=== PATIENT | male | born 1940 | race Two or more races ===

== ENCOUNTER 2022-10-23 21:30 | Inpatient (IN) | payer OTHER ==
[2022-10-22 22:56] VITALS: BP 153/78; PULSE 66; RESP 17; TEMP 97.4; O2SAT 98
[~2022-10-23] VITALS: Ht 190.5 cm; Wt 82.4 kg
[2022-10-23] MEDS ORDERED: GEMF-66 PO (22:55)
[2022-10-23] MEDS ORDERED: LISI10TA34 PO (22:55)
[2022-10-23 22:56] VITALS: BP 153/78; PULSE 66; RESP 17; TEMP 97.4; O2SAT 98
[2022-10-23] MEDS ORDERED: ACETAMINOPHEN 325 MG TAB PO PRN (23:15)
[2022-10-23] MEDS ORDERED: NITROGLYCERIN 0.4 MG SL TAB SL PRN (23:15)
[2022-10-23] MEDS ORDERED: ONDANSETRON HCL 4 MG/2 ML VIAL IV PRN (23:15)
[2022-10-23] MEDS ORDERED: MORPHINE SULFATE INJ 2 MG/ml SYRG IV PRN ×2 (23:15)
[2022-10-23] MEDS ORDERED: METOPROLOL TARTRATE 1MG/1ML-5ML VIAL IV PRN (23:15)
[2022-10-23] MEDS ORDERED: HYDROcodone-ACET 5/325MG TAB PO PRN (23:15)
[2022-10-23 23:56] VITALS: BP 153/78; PULSE 66; RESP 17; TEMP 97.4; O2SAT 98
[2022-10-24] VITALS (7 sets, daily range): BP systolic 138–174; BP diastolic 66–84; PULSE 62–91; RESP 15–19; TEMP 97.5–98.3; O2SAT 46–98
[2022-10-24 00:23] LABS: Hematocrit 31.8 % (41.0-53.0); Hemoglobin 10.7 g/dL (13.5-17.5)
[2022-10-24] MEDS: SODIUM CHLORIDE 0.9% 1,000 ML IV SCH ×3 (00:48→17:49)
[2022-10-24 03:59] LABS: Urine Bacteria NONE SEEN /hpf (None Seen); Urine Blood 3+ /uL (Negative); Urine Specific Gravity 1.016 (1.001-1.035); Urine WBC 666 /hpf (0 - 3); Urine WBC Clumps PRESENT /hpf (None Seen)
[2022-10-24 08:47] LABS: Basophils # (auto) 0 10 ^3/uL (0-0.2); Basophils % (auto) 0.3 % (0.0-2.0); Eosinophils # (auto) 0 10 ^3/uL (0-0.8); Eosinophils % (auto) 0.4 % (0.0-7.0); Hematocrit 32.8 % (41.0-53.0); Hemoglobin 10.9 g/dL (13.5-17.5); Lymphocytes # (auto) 0.8 10 ^3/uL (0.4-5.4); Lymphocytes % (auto) 6.8 % (10.0-50.0); Mean Corpuscular Hemoglobin 29.4 pg (28.0-32.0); Mean Corpuscular Hgb Conc. 33.4 g/dL (32.0-36.0); Mean Corpuscular Volume 88.1 fL (80.0-100.0); Monocytes # (auto) 0.6 10 ^3/uL (0-1.3); Monocytes % (auto) 4.7 % (0.0-12.0); Neutrophils # (auto) 10.4 10 ^3/uL (1.6-8.6); Neutrophils % (auto) 87.8 % (37.0-80.0); Red Blood Cells 3.72 10^6/uL (4.5-5.90); Red Cell Distribution Width 13.9 % (11.8-14.3); White Blood Cell 11.9 10^3/uL (4.4-10.8)
[2022-10-24 08:55] LABS: Magnesium 2.2 mg/dL (1.6-2.6); Potassium 4.4 mmol/L (3.5-5.1)
[2022-10-24 08:58] LABS: INR 1.12 (0.9-1.15)
[2022-10-24 09:01] LABS: Albumin 3.3 g/dL (3.4-5.0); BUN/Creatinine Ratio 17.5 (10.0-20.0); Bilirubin, Total 0.5 mg/dL (0.2-1.0); Calcium 9.5 mg/dL (8.5-10.1); Total Protein 7.5 g/dL (6.4-8.2)
[2022-10-24] MEDS: PANTOPRAZOLE 40 MG/10 ML VIAL INJ IV SCH (09:06)
[2022-10-24] MEDS: cefTRIAXone 1GM/50ML D5W 50 ML IV SCH (09:06)
[2022-10-24] MEDS ORDERED: HEPARIN SODIUM (PORCINE) 5000 UNITS/ML 1ML VIAL SC SCH (10:00)
[2022-10-24] MEDS ORDERED: hydrALAZINE HCL 20 MG/ML VL IV PRN (10:45)
[2022-10-24] MEDS ORDERED: CARVEDILOL 3.125 MG TAB PO SCH (11:00)
[2022-10-24 11:44] LABS: Hematocrit 29.4 % (41.0-53.0); Hemoglobin 9.9 g/dL (13.5-17.5)
[2022-10-24] MEDS: AMIODARONE HCL 200 MG TAB PO SCH (13:32)
[2022-10-24] MEDS ORDERED: TAMSULOSIN HYDROCHLORIDE 0.4 MG CAP PO SCH (18:00)
[2022-10-24 18:34] LABS: Hematocrit 29.9 % (41.0-53.0)
[2022-10-24] MEDS ORDERED: METOPROLOL TARTRATE 25 MG TAB PO SCH (22:00)
[2022-10-25] VITALS (7 sets, daily range): BP systolic 115–163; BP diastolic 68–85; PULSE 65–95; RESP 16–20; TEMP 97.4–98.4; O2SAT 97–100
[2022-10-25 06:24] LABS: Basophils # (auto) 0 10 ^3/uL (0-0.2); Basophils % (auto) 0.5 % (0.0-2.0); Eosinophils # (auto) 0.2 10 ^3/uL (0-0.8); Eosinophils % (auto) 1.7 % (0.0-7.0); Hemoglobin 10.6 g/dL (13.5-17.5); Lymphocytes # (auto) 1.2 10 ^3/uL (0.4-5.4); Mean Corpuscular Hemoglobin 29.8 pg (28.0-32.0); Mean Corpuscular Hgb Conc. 34.2 g/dL (32.0-36.0); Mean Corpuscular Volume 87.2 fL (80.0-100.0); Monocytes # (auto) 0.5 10 ^3/uL (0-1.3); Monocytes % (auto) 4.9 % (0.0-12.0); Neutrophils # (auto) 8.4 10 ^3/uL (1.6-8.6); Neutrophils % (auto) 80.9 % (37.0-80.0); Nucleated Red Blood Cells % 0.1 %; Red Blood Cells 3.55 10^6/uL (4.5-5.90); Red Cell Distribution Width 13.7 % (11.8-14.3); White Blood Cell 10.4 10^3/uL (4.4-10.8)
[2022-10-25 06:32] LABS: BUN/Creatinine Ratio 17.2 (10.0-20.0); Calcium 9.5 mg/dL (8.5-10.1); Potassium 4.3 mmol/L (3.5-5.1)
[2022-10-25] MEDS: SODIUM CHLORIDE 0.9% 1,000 ML IV SCH ×2 (06:38→23:30)
[2022-10-25] MEDS: PANTOPRAZOLE 40 MG/10 ML VIAL INJ IV SCH (09:16)
[2022-10-25] MEDS: AMIODARONE HCL 200 MG TAB PO SCH (09:16)
[2022-10-25] MEDS: cefTRIAXone 1GM/50ML D5W 50 ML IV SCH (09:16)
[2022-10-25] MEDS: hydrALAZINE HCL 25 MG TAB PO SCH ×2 (19:00→22:04)
[2022-10-25] MEDS: CARVEDILOL 12.5 MG TAB PO SCH ×2 (19:01→22:03)
[2022-10-26] VITALS (7 sets, daily range): BP systolic 105–143; BP diastolic 52–81; PULSE 64–120; RESP 16–18; TEMP 97.7–98.1; O2SAT 97–100
[2022-10-26] MEDS: hydrALAZINE HCL 25 MG TAB PO SCH ×3 (05:41→21:37)
[2022-10-26 05:58] LABS: Basophils # (auto) 0 10 ^3/uL (0-0.2); Basophils % (auto) 0.4 % (0.0-2.0); Eosinophils # (auto) 0.2 10 ^3/uL (0-0.8); Eosinophils % (auto) 1.7 % (0.0-7.0); Hematocrit 26.1 % (41.0-53.0); Lymphocytes # (auto) 0.8 10 ^3/uL (0.4-5.4); Lymphocytes % (auto) 9.2 % (10.0-50.0); Mean Corpuscular Hemoglobin 30.1 pg (28.0-32.0); Mean Corpuscular Hgb Conc. 34.3 g/dL (32.0-36.0); Mean Corpuscular Volume 87.8 fL (80.0-100.0); Monocytes # (auto) 0.5 10 ^3/uL (0-1.3); Monocytes % (auto) 5.3 % (0.0-12.0); Neutrophils # (auto) 7.7 10 ^3/uL (1.6-8.6); Neutrophils % (auto) 83.4 % (37.0-80.0); Red Blood Cells 2.97 10^6/uL (4.5-5.90); White Blood Cell 9.2 10^3/uL (4.4-10.8)
[2022-10-26] MEDS: cefTRIAXone 1GM/50ML D5W 50 ML IV SCH (08:41)
[2022-10-26] MEDS: CARVEDILOL 12.5 MG TAB PO SCH ×2 (08:42→21:37)
[2022-10-26] MEDS: AMIODARONE HCL 200 MG TAB PO SCH (08:42)
[2022-10-26] MEDS: PANTOPRAZOLE 40 MG/10 ML VIAL INJ IV SCH (08:42)
[2022-10-26] MEDS: SODIUM CHLORIDE 0.9% 1,000 ML IV SCH (19:36)
[2022-10-27] VITALS (8 sets, daily range): BP systolic 124–153; BP diastolic 69–75; PULSE 64–73; RESP 16–68; TEMP 96.4–98.6; O2SAT 95–100
[2022-10-27] MEDS: hydrALAZINE HCL 25 MG TAB PO SCH ×3 (05:31→21:50)
[2022-10-27 07:45] LABS: Basophils # (auto) 0.1 10 ^3/uL (0-0.2); Basophils % (auto) 0.8 % (0.0-2.0); Eosinophils # (auto) 0.2 10 ^3/uL (0-0.8); Hematocrit 27.3 % (41.0-53.0); Hemoglobin 9.2 g/dL (13.5-17.5); Lymphocytes # (auto) 0.8 10 ^3/uL (0.4-5.4); Mean Corpuscular Hemoglobin 29.7 pg (28.0-32.0); Mean Corpuscular Hgb Conc. 33.6 g/dL (32.0-36.0); Mean Corpuscular Volume 88.4 fL (80.0-100.0); Monocytes # (auto) 0.4 10 ^3/uL (0-1.3); Neutrophils # (auto) 6.1 10 ^3/uL (1.6-8.6); Neutrophils % (auto) 80.2 % (37.0-80.0); Nucleated Red Blood Cells % 0.1 %; Red Blood Cells 3.09 10^6/uL (4.5-5.90); Red Cell Distribution Width 13.7 % (11.8-14.3); White Blood Cell 7.6 10^3/uL (4.4-10.8)
[2022-10-27] MEDS: SODIUM CHLORIDE 0.9% 1,000 ML IV SCH ×3 (08:38→14:12)
[2022-10-27] MEDS: cefTRIAXone 1GM/50ML D5W 50 ML IV SCH (09:26)
[2022-10-27] MEDS: CARVEDILOL 12.5 MG TAB PO SCH ×2 (09:28→21:50)
[2022-10-27] MEDS: AMIODARONE HCL 200 MG TAB PO SCH (09:28)
[2022-10-27] MEDS ORDERED: BUPIVACAINE 0.5% P/F INJ 10 ML VIAL ONE (11:23)
[2022-10-27] MEDS ORDERED: PROPOFOL 10 MG/ML 20 ML IV ONE (11:25)
[2022-10-27] MEDS ORDERED: ONDANSETRON HCL 4 MG/2 ML VIAL ONE (11:25)
[2022-10-27] MEDS ORDERED: SODIUM CHLORIDE LOCK 10 ML ONE (11:25)
[2022-10-27] MEDS ORDERED: fentaNYL CITRATE 100 MCG/2 ML VL ONE (11:25)
[2022-10-27] MEDS ORDERED: MIDAZOLAM HCL 2MG/2ML 2ml VIAL (1mg/ml) ONE (11:25)
[2022-10-27] MEDS ORDERED: MORPHINE SULFATE INJ 2 MG/ml SYRG IV PRN (14:00)
[2022-10-27] MEDS ORDERED: ONDANSETRON HCL 4 MG/2 ML VIAL IV PRN (14:00)
[2022-10-27] MEDS ORDERED: HYDROmorphone HCL 2 MG/ML VL/or syr IV PRN ×2 (14:00)
[2022-10-28] VITALS (8 sets, daily range): BP systolic 87–142; BP diastolic 54–77; PULSE 63–74; RESP 16–18; TEMP 96.8–98.3; O2SAT 91–100
[2022-10-28] MEDS: hydrALAZINE HCL 25 MG TAB PO SCH ×3 (05:42→22:11)
[2022-10-28] MEDS: SODIUM CHLORIDE 0.9% 1,000 ML IV SCH (05:48)
[2022-10-28 06:49] LABS: Basophils # (auto) 0 10 ^3/uL (0-0.2); Basophils % (auto) 0.5 % (0.0-2.0); Eosinophils # (auto) 0.2 10 ^3/uL (0-0.8); Eosinophils % (auto) 2.8 % (0.0-7.0); Hematocrit 25.7 % (41.0-53.0); Hemoglobin 8.8 g/dL (13.5-17.5); Lymphocytes # (auto) 0.7 10 ^3/uL (0.4-5.4); Lymphocytes % (auto) 8.5 % (10.0-50.0); Mean Corpuscular Hgb Conc. 34.2 g/dL (32.0-36.0); Mean Corpuscular Volume 87.7 fL (80.0-100.0); Monocytes # (auto) 0.5 10 ^3/uL (0-1.3); Monocytes % (auto) 6.7 % (0.0-12.0); Neutrophils # (auto) 6.5 10 ^3/uL (1.6-8.6); Neutrophils % (auto) 81.5 % (37.0-80.0); Red Blood Cells 2.93 10^6/uL (4.5-5.90); Red Cell Distribution Width 13.6 % (11.8-14.3); White Blood Cell 7.9 10^3/uL (4.4-10.8)
[2022-10-28 06:59] LABS: Calcium 8.7 mg/dL (8.5-10.1)
[2022-10-28 07:02] LABS: BUN/Creatinine Ratio 15.6 (10.0-20.0)
[2022-10-28] MEDS: cefTRIAXone 1GM/50ML D5W 50 ML IV SCH (10:51)
[2022-10-28] MEDS: CARVEDILOL 12.5 MG TAB PO SCH ×2 (10:52→22:11)
[2022-10-28] MEDS: AMIODARONE HCL 200 MG TAB PO SCH (10:52)
[2022-10-28] MEDS: FERROUS SULFATE 300 MG/5 ML ORAL LIQ PO SCH (18:26)
[2022-10-29 05:00] VITALS: BP 138/81; PULSE 70; RESP 18; TEMP 97.7; O2SAT 99
[2022-10-29] MEDS: hydrALAZINE HCL 25 MG TAB PO SCH (05:35)
[2022-10-29 06:20] LABS: Basophils # (auto) 0.1 10 ^3/uL (0-0.2); Basophils % (auto) 0.6 % (0.0-2.0); Eosinophils # (auto) 0.3 10 ^3/uL (0-0.8); Eosinophils % (auto) 3.4 % (0.0-7.0); Hematocrit 25.2 % (41.0-53.0); Hemoglobin 8.7 g/dL (13.5-17.5); Lymphocytes # (auto) 0.9 10 ^3/uL (0.4-5.4); Lymphocytes % (auto) 11.5 % (10.0-50.0); Mean Corpuscular Hemoglobin 30.3 pg (28.0-32.0); Mean Corpuscular Hgb Conc. 34.4 g/dL (32.0-36.0); Mean Corpuscular Volume 87.9 fL (80.0-100.0); Monocytes # (auto) 0.6 10 ^3/uL (0-1.3); Neutrophils # (auto) 6.1 10 ^3/uL (1.6-8.6); Neutrophils % (auto) 76.5 % (37.0-80.0); Nucleated Red Blood Cells % 0.2 %; Red Blood Cells 2.86 10^6/uL (4.5-5.90); Red Cell Distribution Width 13.6 % (11.8-14.3)
[2022-10-29 06:32] LABS: Calcium 8.3 mg/dL (8.5-10.1)
[2022-10-29 06:33] LABS: BUN/Creatinine Ratio 16.8 (10.0-20.0)
[2022-10-29 08:00] VITALS: PULSE 65; PULSE 72; RESP 18; O2SAT 97
[2022-10-29] MEDS: CARVEDILOL 12.5 MG TAB PO SCH (08:40)
[2022-10-29] MEDS: cefTRIAXone 1GM/50ML D5W 50 ML IV SCH (08:40)
[2022-10-29] MEDS: FERROUS SULFATE 300 MG/5 ML ORAL LIQ PO SCH (08:40)
[2022-10-29] MEDS: AMIODARONE HCL 200 MG TAB PO SCH (08:41)
[2022-10-29 08:52] VITALS: BP 132/69; PULSE 64; RESP 18; TEMP 97.8; O2SAT 99
[2022-10-29] MEDS ORDERED: CEPH250C PO (11:25)
[2022-10-29] MEDS ORDERED: APIX5TAB PO (11:32)
[2022-10-29] MEDS ORDERED: CAR125T OR (11:32)
[2022-10-29] MEDS ORDERED: AMIO200T33 PO (11:32)
[2022-10-29 12:51] VITALS: BP 130/66; PULSE 62; RESP 18; TEMP 97.8; O2SAT 99
[2022-10-29 13:00] VITALS: BP 98/45; PULSE 77; RESP 18; TEMP 98.1; O2SAT 98
== END 2022-10-29 13:00 | disposition home health service (06) | DRG 666 ==
LOC: TELE-CENTR 22:24
PROVIDERS: ADMIT Internal Medicine; ATTEND Internal Medicine
PROC: 0VT08ZZ Resection of Prostate, Via Natural or Artificial Opening Endoscopic (ICD-10-PCS; principal; 2022-10-27 12:23)
DX: N13.6 Pyonephrosis (principal); I13.0 Hypertensive heart and chronic kidney disease with heart failure and stage 1 through stage 4 chronic kidney disease, or unspecified chronic kidney disease; I48.92 Unspecified atrial flutter; N13.8 Other obstructive and reflux uropathy; I50.20 Unspecified systolic (congestive) heart failure; R33.8 Other retention of urine; R31.9 Hematuria, unspecified; N40.1 Benign prostatic hyperplasia with lower urinary tract symptoms; N17.9 Acute kidney failure, unspecified; F17.200 Nicotine dependence, unspecified, uncomplicated; E78.5 Hyperlipidemia, unspecified; I48.91 Unspecified atrial fibrillation; K59.00 Constipation, unspecified; N18.9 Chronic kidney disease, unspecified; Z68.21 Body mass index [BMI] 21.0-21.9, adult; Z92.3 Personal history of irradiation; Z85.828 Personal history of other malignant neoplasm of skin; Z82.0 Family history of epilepsy and other diseases of the nervous system; Z82.5 Family history of asthma and other chronic lower respiratory diseases; Z83.3 Family history of diabetes mellitus; Z90.79 Acquired absence of other genital organ(s)
CPT/HCPCS: 36415; 71045; 74176; 80048; 80053; 80061; 81001; 83036; 83735; 83880; 84154; 84443; 84484; 85014; 85018; 85025; 85610; 87040; 87081; 87086; 87088; 87186; 93005; 93306; 97163; C9113; G0378; J0696; J2250; J2405; J2704; J3490

== ENCOUNTER → 2022-12-11 | Outpatient (CLI) | payer OTHER ==
[~2022-12-11] VITALS: Ht 190.5 cm; Wt 81.6 kg
[~2022-12-11] MED LIST: ADENOSINE 69 MG in GIVE UN-DILUTED 0 ML IV ONE; AMIO200T33 PO; APIX5TAB PO; CAR125T OR; CEPH250C PO; GEMF-66 PO
== END | disposition home or self-care (01) ==
LOC: XYW 08:22
PROVIDERS: ATTEND Internal Medicine
DX: I48.92 Unspecified atrial flutter (principal); C44.320 Squamous cell carcinoma of skin of unspecified parts of face; R31.9 Hematuria, unspecified; Z68.21 Body mass index [BMI] 21.0-21.9, adult; Z90.79 Acquired absence of other genital organ(s)
CPT/HCPCS: 78452; 93017; A9500; J0153; 95819

== ENCOUNTER 2024-11-27 13:07 | Emergency (ER) | payer OTHER ==
[~2024-11-27] VITALS: Ht 190.5 cm; Wt 74.0 kg
[~2024-11-27 13:07] MED LIST changes: -ADENOSINE 69 MG in GIVE UN-DILUTED 0 ML IV ONE; -CAR125T OR; +CARV-216 OR
--- NOTE | 2024-11-27 14:14 | ED.PDOC ---
History of Present Illness(SKN HPI Comments 84 year old male presents to the ED with a chief complaint of wound check. Patient has PMHx skin cancer, has had 2 radiation treatments, last treatment was June 2024. For the past 2 weeks patient noticed wound on RT cheek was worsening, saw PCP, had a culture done, was not told the results. For the past few days, he noticed wound has worsened, has a foul odor, home health nurse recommended patient to come to ED. Denies fever, chills, nausea, vomiting, diarrhea, headache, chest pain, shortness of breath. No other symptoms or modifying factors present at this time. Chief Complaint: Wound Check Time Seen by MD: 14:00 History of Present Illness: Medications, Allergies Allergies: Coded Allergies: NO KNOWN ALLERGIES (Unverified , 10/24/22) Home Meds Active Scripts Carvedilol (COREG) 12.5 Mg Tab, 12.5 MG OR Q12HR, #60 TAB Prov:AMBAR FITZGERALD MD 10/29/22 Apixaban Base (ELIQUIS) 5 Mg Tab, 5 MG PO BIDPC, #60 TAB Prov:AMBAR FITZGERADL MD 10/29/22 Amiodarone Hcl (Amiodarone Hcl) 200 Mg Tab, 1 TAB PO DAILY, #30 TAB 5 Refills Prov:AMBAR FITZGERALD MD 10/29/22 Cephalexin (KEFLEX CAPSULE) 250 Mg Cp, 2 CAP PO TID for 3 Days, #18 CAP Prov:AMBAR FITZGERALD MD 10/29/22 Reported Medications Gemfibrozil (Gemfibrozil) 600 Mg Tab, 600 MG PO BID for 30 Days 10/23/22 Information Source: Patient, Spouse Mode of Arrival: Ambulatory Severity: Moderate Timing: Weeks Duration: Since onset Prehospital treatment: None Location: Face Associated Signs and Symptoms: Other (foul odor) Past Medical History PAST MEDICAL HISTORY: Cancer (skin), HTN Surgical History: Denies all surgeries Family History Family History: Reviewed,noncontributory to illness, No family hx of Cancer, No family hx of DM, No family hx of Heart wilber, No family hx of HTN, No family hx ofKidney wilber, No family hx of Liver wilber, No family hx of Lung wilber, No family hx of Stroke Social History Smoker: Non-Smoker Alcohol: Denies ETOH Use Drugs: Denies Drug Use Lives In: Home Constitutional: denies: chills, diaphoresis, fatigue, fever, malaise, sweats, w eakness, others EENTM: denies: blurred vision, double vision, ear bleeding, ear discharge, ear drainage, ear pain, ear ringing, eye pain, eye redness, hearing loss, mouth pain, mouth swelling, nasal discharge, nose bleeding, nose congestion, nose pain, photophobia, tearing, throat pain, throat swelling, voice changes, others Respiratory: denies: cough, hemoptysis, orthopnea, SOB at rest, shortness of breath, SOB with excertion, stridor, wheezing, others Cardiovascular: denies: chest pain, dizzy spells, diaphoresis, Dyspnea on exertion, edema, irregular heart beat, left arm pain, lightheadedness, palpitations, PND, syncope, others Gastrointestinal: denies: abdomen distended, abdominal pain, blood streaked bowels, constipated, diarrhea, dysphagia, difficulty swallowing, hematemesis, melena, nausea, poor appetite, poor fluid intake, rectal bleeding, rectal pain, vomiting, others Genitourinary: denies: burning, dysuria, flank pain, frequency, hematuria, incontinence, penile discharge, penile sore, pain, testicle pain, testicle swe lling, urgency, others Neurological: denies: dizziness, fainting, headache, left sided numbness, left sided weakness, numbness, paresthesia, pre-existing deficit, right sided numbness, right sided weakness, seizure, speech problems, tingling, tremors, weakness, others Musculoskeletal: denies: back pain, gout, joint pain, joint swelling, muscle pain, muscle stiffness, neck pain, others Integumetry: reports: wounds (RT cheek wound); denies: bruises, change in color, change in hair/nails, dryness, laceration, lesions, lumps, rash, others Allergic/Immunocompromised: denies: Difficulty Healing, Frequent Infections, Hives, Itching, others Endocrine: denies: excessive hunger, excessive sweating, excessive thirst, excessive urination, flushing, intolerance to cold, intolerance to heat, unexplained weight gain, unexplained weight loss, others Psychiatric: denies: anxiety, bipolar disorder, depression, hopeless, panic disorder, schizophrenia, sleepless, suicidal, others All Other Systems: Reviewed and Negative Physical Exam General Appearance: Normal HEENT: Normal ENT Inspection, Pharynx Normal, TMs Normal Neck: Full Range of Motion, Non-Tender, Normal, Normal Inspection Respiratory: Chest Non-Tender, Lungs Clear, No Accessory Muscle Use, No Respiratory Distress, Normal Breath Sounds Cardiovascular: No Edema, No JVD, No Murmur, No Gallop, Normal Peripheral Pulses, Regular Rate/Rhythm Breast Exam: Deferred Gastrointestinal: No Organomegaly, Non Tender, No Pulsatile Mass, Normal Bowel Sounds, Soft Genitalia: Deferred Pelvic: Deferred Rectal: Deferred Extremities: No calf tenderness, Normal capillary refill, Normal inspection, Normal range of motion, Non-tender, No pedal edema Musculoskeletal : Apperance: Normal Neurologic: Alert, shank carrier II-XII nml as Tested, No Motor Deficits, Normal Affect, Normal Mood, No Sensory Deficits Cerebellar Function: Normal Reflexes: Normal Skin: Other (Right face with approximately 10 cm chronic ulcerating wound with foul odor and small amount of surrounding erythema, positive warmth, no obvious discharge, no significant tenderness to palpation, no crepitus, no fluctuance) Lymphatic: No Adenopathy Was a procedure done? Was a procedure done?: No Differential Diagnosis (INTG) Differential Diagnosis: Cellulitis, Fracture, Hematoma, Laceration, Puncture Wound Differential Diagnosis: Abscess, Cellulitis, Erysipelas, Gangrene, Herpes Zoster/Simplex, Impetigo Abscess: Bacteremia, Gas Gangrene X-Ray, Labs, Meds, VS Vital Signs Date Time Temp Pulse Resp B/P (MAP) Pulse Ox O2 Delivery O2 Flow Rate FiO2 11/27/24 13:07 97.4 102 18 144/90 97 97.4 Lab Test 11/27/24 14:27 Range/Units White Blood Count 9.0 4.4-10.8 10^3/uL Red Blood Count 4.67 4.5-5.90 10^6/uL Hemoglobin 13.6 13.5-17.5 g/dL Hematocrit 39.6 L 41.0-53.0 % Mean Corpuscular Volume 84.8 80.0-100.0 fL Mean Corpuscular Hemoglobin 29.0 28.0-32.0 pg Mean Corpuscular Hemoglobin Concent 34.3 32.0-36.0 g/dL Red Cell Distribution Width 15.1 H 11.8-14.3 % Platelet Count 307 140-450 10^3/uL Mean Platelet Volume 7.9 6.9-10.8 fL Neutrophils (%) (Auto) 81.0 H 37.0-80.0 % Lymphocytes (%) (Auto) 10.4 10.0-50.0 % Monocytes (%) (Auto) 7.1 0.0-12.0 % Eosinophils (%) (Auto) 1.0 0.0-7.0 % Basophils (%) (Auto) 0.5 0.0-2.0 % Neutrophils # (Auto) 7.3 1.6-8.6 10 ^3/uL Lymphocytes # (Auto) 0.9 0.4-5.4 10 ^3/uL Monocytes # (Auto) 0.6 0-1.3 10 ^3/uL Eosinophils # (Auto) 0.1 0-0.8 10 ^3/uL Basophils # (Auto) 0 0-0.2 10 ^3/uL Nucleated Red Blood Cells 0.0 % Sodium Level 141 136-145 mmol/L Potassium Level 5.3 H 3.5-5.1 mmol/L Chloride Level 104 98-107 mmol/L Carbon Dioxide Level 27 20-31 mmol/L Anion Gap 10 5-15 Blood Urea Nitrogen 28 H 9-23 mg/dL Creatinine 1.51 H 0.700-1.30 mg/dL Glomerular Filtration Rate Calc 46 >90 mL/min BUN/Creatinine Ratio 18.5 10.0-20.0 Serum Glucose 95 74-106 mg/dL Lactic Acid Level 1.5 0.4-2.0 mmol/L Calcium Level 10.3 8.7-10.4 mg/dL Current Medications Medications (Trade) Dose Ordered Sig/Royce Route Start Time Stop Time Status Last Admin Sodium Chloride 1,000 ml @ 1,000 mls/hr Q1H ONCE IV 11/27/24 14:15 11/27/24 15:14 DC 11/27/24 14:15 Ceftriaxone Sodium 50 ml @ 100 mls/hr ONCE ONCE IV 11/27/24 14:15 11/27/24 14:44 DC 11/27/24 15:07 Vancomycin HCl 250 ml @ 250 mls/hr ONCE ONCE IV 11/27/24 16:30 11/27/24 17:29 DC 11/27/24 19:18 X-Ray, Labs, Meds, VS Comment 84-year-old male with history of basal cell carcinoma to the right side of his face here today after his home health nurse had concern for new infection at the site of the cancer. Vital signs stable, afebrile. Physical exam with evidence of chronic appearing wound with evidence of surrounding erythema and warmth and a foul odor consistent with infection. Labs overall reassuring without evidence of significant leukocytosis nor lactic acidosis. Blood cultures were obtained and vancomycin/ceftriaxone were ordered to cover for superficial skin infections/MRSA. Patient does not meet sepsis criteria. Plan was made to admit the patient to this hospital originally however admitting hospitalist was concerned that the patient would require debridement so recommended we transfer the patient instead as we do not have OMFS. Transfer was attempted for over 5 hours and was unsuccessful. Most recently I discussed the case with who stated that they could not get a hold of their OMFS surgeon so they could not accept the transfer and their ENT doctor did not have any OR time until . I provided the patient and his with constant updates throughout the duration of their stay in the ER and they were very appreciative of this. At 8:26 p.m., I updated done that [facility] refused the transfer and the patient and his stated that they would like to be discharged and they will go to themselves tomorrow. The patient did receive his IV antibiotics and overall his lab work is reassuring and does not appear to be consistent with sepsis. I provide the patient with strict return precautions for any fevers, or worsening of his symptoms or development of new symptoms and him and his expressed understanding of this and once again thanked me for the constant updates and the effort in getting them transferred today. Patient was discharged in stable condition and in no distress. Time of 1ST Reevaluation: 14:30 Reevaluation 1ST: Unchanged Time of 2ND Reevaluation: 20:27 Reevaluation 2ND: Improved Patient Education/Counseling: Diagnosis, Treatment Family Education/Counseling: Diagnosis, Treatment SEPSIS Sepsis Screen Date sepsis recognized/suspect: Nov 27, 2024 Time Sepsis recognized/suspect: 1307 Recent Procedure: No On Antibiotic Therapy: No Respiratory Rate >20: No Heart Rate >90: Yes Temp<36 C (96.8 F) or >38.3 C: No SBP <90 or MAP <65 mmHG: No New Acute Mental Status Change: No Is the patient on CPAP, BIPAP,: No Physician Orders Blood Culture (11/27/24 14:14) Vital Signs Date Time Temp Pulse Resp B/P (MAP) Pulse Ox O2 Delivery O2 Flow Rate FiO2 11/27/24 13:07 97.4 102 18 144/90 97 97.4 Laboratory Tests Test 11/27/24 14:27 Lactic Acid Level 1.5 mmol/L (0.4-2.0) White Blood Count 9.0 10^3/uL (4.4-10.8) Medications Medications Dose Ordered Sig/Royce Route Start Time Stop Time Status Last Admin Dose Admin Ceftriaxone Sodium 50 ml @ 100 mls/hr ONCE ONCE IV 11/27/24 14:15 11/27/24 14:44 DC 11/27/24 15:07 Sodium Chloride 1,000 ml @ 1,000 mls/hr Q1H ONCE IV 11/27/24 14:15 11/27/24 15:14 DC 11/27/24 14:15 Vancomycin HCl 250 ml @ 250 mls/hr ONCE ONCE IV 11/27/24 16:30 11/27/24 17:29 DC 11/27/24 19:18 Departure 1 Departure Time of Disposition: 20:27 Impression: Primary Impression: Basal cell carcinoma of face Additional Impression: Cellulitis Disposition: 01 HOME / SELF CARE / HOMELESS Condition: Stable Discharged With: Spouse Critical Care Note Critical Care Time?: Yes (30 min-critical care time only) Stability Stability form required: No Heart Score Heart Score: Heart Score Response (Comments) Value History N/A 0 EKG N/A 0 Age N/A 0 Risk Factors N/A 0 Troponin N/A 0 Total 0 I personally scribed for ERIKA BOURGEOIS MD ([email or web address]) on 11/27/24 at 14:14. Electronically submitted by Gisselle Palma ([email or web address]). ERIKA BOURGEOIS MD Nov 27, 2024 14:14
[2024-11-27] MEDS: SODIUM CHLORIDE 0.9% 1,000 ML IV ONE (14:15)
[2024-11-27] MEDS ORDERED: VANCOMYCIN 1GM/200ML PM 200 ML IV ONE (14:15)
[2024-11-27 14:49] LABS: Hematocrit 39.6 % (41.0-53.0); Hemoglobin 13.6 g/dL (13.5-17.5); Mean Corpuscular Hemoglobin 29.0 pg (28.0-32.0); Mean Corpuscular Volume 84.8 fL (80.0-100.0); Nucleated Red Blood Cells % 0.0 %
[2024-11-27] MEDS: cefTRIAXone 1GM/50ML D5W 50 ML IV ONE (15:07)
[2024-11-27 15:18] LABS: Chloride 104 mmol/L (98-107); Sodium 141 mmol/L (136-145)
[2024-11-27 15:19] LABS: Anion Gap 10 (5-15); Calcium 10.3 mg/dL (8.7-10.4); Carbon Dioxide 27 mmol/L (20-31)
[2024-11-27 15:24] LABS: BUN/Creatinine Ratio 18.5 (10.0-20.0); Glucose 95 mg/dL (74-106)
[2024-11-27 15:25] LABS: Blood Urea Nitrogen 28 mg/dL (9-23); Potassium 5.3 mmol/L (3.5-5.1)
[2024-11-27] MEDS: VANCOMYCIN 1GM/250ML KIT 250 ML IV ONE (19:18)
[2024-11-27] MEDS ORDERED: BACDST PO (20:29)
[2024-11-27] MEDS ORDERED: CEPH500C PO (20:29)
[2024-11-27 21:08] VITALS: BP 144/77; PULSE 84; RESP 20; TEMP 97.8; O2SAT 96
--- NOTE | 2024-11-29 12:58 | DVHINCON2 ---
Date Seen: Nov 27, 2024 Ref[address] Phys[address] ER physician Dr. Edwards. 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 History of Present Illness 84-year-old male with a known history of skin cancer of the right face likely basal cell cancer. status post radiation treatment in June 2024. Patient was complaining of worsening wound of the right cheek for last two weeks and saw his PCP and culture was done was told to go to the ER. Patient was noticed to have a wound which has gotten worse and has a foul odor. Patient denies any fevers chills. As we do not have any oral maxillofacial surgeon availability here patient will be transferred to higher level of care for oral maxillofacial surgeon to do the wound debridement and IV antibiotics. This was explained to the patient and patient's in detail they understand verbalized understanding and agreeable to plan. Past Medical History Basal cell cancer of the right face status post biopsy status post radiation Hypertension Paroxysmal AFib History of BPH status post TURP. Past Surgical History Right facial skin biopsy for squamous cell cancer Family History: Alzheimer's disease G8 MOTHER Diabetes mellitus G8 MOTHER FH: COPD (chronic obstructive pulmonary disease) G8 SISTER FH: cancer G8 MOTHER G8 SISTER Allergies: Coded Allergies: NO KNOWN ALLERGIES (Unverified , 10/24/22) Home Meds Active Scripts Cephalexin Monohydrate (Cephalexin) 500 Mg Cap, 500 MG PO Q6HR for 5 Days, #20 MG Prov:ERIKA BOURGEOIS MD 11/27/24 Sulfamethoxazole W/Trimethopri (Bactrim Ds Tablet) 1 Tab Tb, 1 TAB PO BID for 5 Days, #10 TAB Prov:ERIKA BOURGEOIS MD 11/27/24 Carvedilol (COREG) 12.5 Mg Tab, 12.5 MG OR Q12HR, #60 TAB Prov:AMBAR FITZGERALD MD 10/29/22 Apixaban Base (ELIQUIS) 5 Mg Tab, 5 MG PO BIDPC, #60 TAB Prov:AMBAR FITZGERALD MD 10/29/22 Amiodarone Hcl (Amiodarone Hcl) 200 Mg Tab, 1 TAB PO DAILY, #30 TAB 5 Refills Prov:AMBAR FITZGERALD MD 10/29/22 Cephalexin (KEFLEX CAPSULE) 250 Mg Cp, 2 CAP PO TID for 3 Days, #18 CAP Prov:AMBAR FITZGERALD MD 10/29/22 Reported Medications Gemfibrozil (Gemfibrozil) 600 Mg Tab, 600 MG PO BID for 30 Days 10/23/22 Review of Systems 12 review of system are negative besides mentioned above. Vital Signs Vital Signs Date Time Temp Pulse Resp B/P (MAP) Pulse Ox O2 Delivery O2 Flow Rate FiO2 11/27/24 21:08 97.8 84 20 144/77 (99) 96 97.8 11/27/24 21:08 Room Air Physical Exam HEENT pupils are reactive right facial skin cancer worsening wound with blackening of tissue Neck is supple CVS S1-S2 regular rate and rhythm Respiratory are clear GI positive bowel sound Extremity no edema CLERICAL SPECIALIST no motor deficit Labs/Diagnostic Data Labs Test 11/27/24 14:27 Range/Units White Blood Count 9.0 4.4-10.8 10^3/uL Red Blood Count 4.67 4.5-5.90 10^6/uL Hemoglobin 13.6 13.5-17.5 g/dL Hematocrit 39.6 L 41.0-53.0 % Mean Corpuscular Volume 84.8 80.0-100.0 fL Mean Corpuscular Hemoglobin 29.0 28.0-32.0 pg Mean Corpuscular Hemoglobin Concent 34.3 32.0-36.0 g/dL Red Cell Distribution Width 15.1 H 11.8-14.3 % Platelet Count 307 140-450 10^3/uL Mean Platelet Volume 7.9 6.9-10.8 fL Neutrophils (%) (Auto) 81.0 H 37.0-80.0 % Lymphocytes (%) (Auto) 10.4 10.0-50.0 % Monocytes (%) (Auto) 7.1 0.0-12.0 % Eosinophils (%) (Auto) 1.0 0.0-7.0 % Basophils (%) (Auto) 0.5 0.0-2.0 % Neutrophils # (Auto) 7.3 1.6-8.6 10 ^3/uL Lymphocytes # (Auto) 0.9 0.4-5.4 10 ^3/uL Monocytes # (Auto) 0.6 0-1.3 10 ^3/uL Eosinophils # (Auto) 0.1 0-0.8 10 ^3/uL Basophils # (Auto) 0 0-0.2 10 ^3/uL Nucleated Red Blood Cells 0.0 % Sodium Level 141 136-145 mmol/L Potassium Level 5.3 H 3.5-5.1 mmol/L Chloride Level 104 98-107 mmol/L Carbon Dioxide Level 27 20-31 mmol/L Anion Gap 10 5-15 Blood Urea Nitrogen 28 H 9-23 mg/dL Creatinine 1.51 H 0.700-1.30 mg/dL Glomerular Filtration Rate Calc 46 >90 mL/min BUN/Creatinine Ratio 18.5 10.0-20.0 Serum Glucose 95 74-106 mg/dL Lactic Acid Level 1.5 0.4-2.0 mmol/L Calcium Level 10.3 8.7-10.4 mg/dL Microbiology Date/Time Source Procedure Growth Status 11/27/24 14:27 Blood Blood Culture - Preliminary NO GROWTH AFTER 24 HOURS OF INCUBATION. Resulted Assessment 84-year-old male with a known history of basal cell cancer of the face status post biopsy status post radiation x2 last radiation therapy in June 2024 presented to the hospital with a worsening wound of the right face found to have 1. Worsening wound with a blackening of tissue on the right face with a known history of basal cell cancer, need oral maxillofacial surgeon intervention 2. Cellulitis of the right face 3. Hypertension 4. Paroxysmal AFib currently in normal sinus rhythm 5. BPH status post TURP -please give a dose of IV antibiotics here, patient needs higher level of care for oral maxillofacial surgeon availability for wound debridement and IV antibiotics. -plan of care discussed with the patient's patient's spouse in the low be they understand and verbalized the understanding and agreeable to plan , -patient needs higher level of care for oral maxillofacial surgeon intervention, this was communicated to ER physician Dr. Edwards. Problems(with codes): (1) Basal cell carcinoma of face Plan discussed with: Patient, Spouse Date of Service: Nov 27, 2024 Billing Provider: AMBAR FITZGERALD MD Common Visit Codes: NOT BILLABLE AMBAR FITZGERALD MD Nov 29, 2024 12:58
== END 2024-11-27 21:02 | disposition home or self-care (01) ==
LOC: ER 13:07
DX: C44.310 Basal cell carcinoma of skin of unspecified parts of face (principal); L03.211 Cellulitis of face; I10 Essential (primary) hypertension; Z90.79 Acquired absence of other genital organ(s)
CPT/HCPCS: 36415; 80048; 83605; 85025; 87040; 96361; 96365; 96367; 99284; J0696; J3373; J7030

== ENCOUNTER 2025-01-19 15:36 | Emergency (ER) | payer OTHER ==
[~2025-01-19] VITALS: Ht 190.5 cm; Wt 74.5 kg
[~2025-01-19 15:36] MED LIST changes: +BACDST PO; +CEPH500C PO
--- NOTE | 2025-01-19 18:25 | ED.PDOC ---
History of Present Illness HPI Comments This patient is a pleasant 84-year-old male who arrives the ED today for evaluation of a right-sided facial wound that has been ongoing for the past year. Patient initially had a basal cell carcinoma that was excised and subsequent to that event, patient has had massive tissue and bone deterioration to the point where at arrival today, the patient has the largest excoriated and degraded facial burn I have seen in my practice. Patient has lost all segments of zygomatic arch and has a exposed dentition as well as a small layer of tissue left on the inferior orbital region. Patient has been managed by wound care at home and was sent him with the facility today due to an appearance of a maggot. This patient needs multiple disciplinary assistance to address progressive and worsening wound. Vital signs were stable on arrival. Chief Complaint: Wound Check Time Seen by MD: 16:58 Reviewed Notes: Nurses Notes Allergies: Coded Allergies: NO KNOWN ALLERGIES (Unverified , 10/24/22) Home Meds Active Scripts Cephalexin Monohydrate (Cephalexin) 500 Mg Cap, 500 MG PO Q6HR for 5 Days, #20 MG Prov:ERIKA BOURGEOIS MD 11/27/24 Sulfamethoxazole W/Trimethopri (Bactrim Ds Tablet) 1 Tab Tb, 1 TAB PO BID for 5 Days, #10 TAB Prov:ERIKA BOURGEOIS MD 11/27/24 Carvedilol (COREG) 12.5 Mg Tab, 12.5 MG OR Q12HR, #60 TAB Prov:AMBAR FITZGERALD MD 10/29/22 Apixaban Base (ELIQUIS) 5 Mg Tab, 5 MG PO BIDPC, #60 TAB Prov:AMBAR FITZGERALD MD 10/29/22 Amiodarone Hcl (Amiodarone Hcl) 200 Mg Tab, 1 TAB PO DAILY, #30 TAB 5 Refills Prov:AMBAR FITZGERALD MD 10/29/22 Cephalexin (KEFLEX CAPSULE) 250 Mg Cp, 2 CAP PO TID for 3 Days, #18 CAP Prov:AMBAR FITZGERALD MD 10/29/22 Reported Medications Gemfibrozil (Gemfibrozil) 600 Mg Tab, 600 MG PO BID for 30 Days 10/23/22 Information Source: Patient, Spouse Mode of Arrival: Ambulatory Severity: Severe Timing: Months Duration: Since onset Prehospital treatment: Treatment Past Medical History PAST MEDICAL HISTORY: Cancer, HTN Past Medical History (Other): Basal cell carcinoma of the face Surgical History: Denies all surgeries Family History Family History: Reviewed,noncontributory to illness, No family hx of Cancer, No family hx of DM, No family hx of Heart wilber, No family hx of HTN, No family hx ofKidney wilber, No family hx of Liver wilber, No family hx of Lung wilber, No family hx of Stroke Social History Smoker: Non-Smoker Alcohol: Denies ETOH Use Drugs: Denies Drug Use Lives In: Home Constitutional: denies: chills, diaphoresis, fatigue, fever, malaise, sweats, weakness, others EENTM: reports: others (Significant right-sided facial wound); denies: blurred vision, double vision, ear bleeding, ear discharge, ear drainage, ear pain, ear ringing, eye pain, eye redness, hearing loss, mouth pain, mouth swelling, nasal discharge, nose bleeding, nose congestion, nose pain, photophobia, tearing, throat pain, throat swelling, voice changes Respiratory: denies: cough, hemoptysis, orthopnea, SOB at rest, shortness of breath, SOB with excertion, stridor, wheezing, others Cardiovascular: denies: chest pain, dizzy spells, diaphoresis, Dyspnea on exertion, edema, irregular heart beat, left arm pain, lightheadedness, palpitations, PND, syncope, others Gastrointestinal: denies: abdomen distended, abdominal pain, blood streaked bowels, constipated, diarrhea, dysphagia, difficulty swallowing, hematemesis, melena, nausea, poor appetite, poor fluid intake, rectal bleeding, rectal pain, vomiting, others Genitourinary: denies: burning, dysuria, flank pain, frequency, hematuria, incontinence, penile discharge, penile sore, pain, testicle pain, testicle swelling, urgency, others Neurological: denies: dizziness, fainting, headache, left sided numbness, left sided weakness, numbness, paresthesia, pre-existing deficit, right sided num bness, right sided weakness, seizure, speech problems, tingling, tremors, weakness, others Musculoskeletal: denies: back pain, gout, joint pain, joint swelling, muscle pain, muscle stiffness, neck pain, others Integumetry: denies: bruises, change in color, change in hair/nails, dryness, laceration, lesions, lumps, rash, wounds, others Allergic/Immunocompromised: denies: Difficulty Healing, Frequent Infections, Hives, Itching, others Hematologic/Lymphatic: denies: anemia, blood clots, easy bleeding, easy bruising, swollen glands, others Endocrine: denies: excessive hunger, excessive sweating, excessive thirst, excessive urination, flushing, intolerance to cold, intolerance to heat, unexplained weight gain, unexplained weight loss, others Psychiatric: denies: anxiety, bipolar disorder, depression, hopeless, panic disorder, schizophrenia, sleepless, suicidal, others Physical Exam General Appearance: Mild Distress (Moderate distress due to some pain concerns.), Normal HEENT: Head (Patient has the largest excoriated facial wound I have seen. Wound borders or proximally the size of a baseball. Excoriated tissue as well as complete zygomatic arch degradation, tissue degradation to the gingiva and thin layer tissue left at the bottom of the globe. Significant tissue necrosis noted throughout with angry erythematous and edematous border that is disfiguring throughout.), Pharynx Normal, TMs Normal Neck: Full Range of Motion, Non-Tender, Normal, Normal Inspection Respiratory: Chest Non-Tender, Lungs Clear, No Accessory Muscle Use, No Respiratory Distress, Normal Breath Sounds Cardiovascular: No Edema, No JVD, No Murmur, No Gallop, Normal Peripheral Pulses, Regular Rate/Rhythm Breast Exam: Deferred Gastrointestinal: No Organomegaly, Non Tender, No Pulsatile Mass, Normal Bowel Sounds, Soft Genitalia: Deferred Pelvic: Deferred Rectal: Deferred Extremities: Non-tender Neurologic: Alert Cerebellar Function: NOT DONE Reflexes: NOT DONE Skin: Wounds (See HEENT for description of facial wound) Lymphatic: No Adenopathy Was a procedure done? Was a procedure done?: No Differential Dx Considerations may include: Facial trauma with tissue degradation and necrosis X-Ray, Labs, Meds, VS Vital Signs Date Time Temp Pulse Resp B/P (MAP) Pulse Ox O2 Delivery O2 Flow Rate FiO2 01/19/25 15:39 97.6 114 18 157/104 96 97.6 Current Medications Medications (Trade) Dose Ordered Sig/Royce Route Start Time Stop Time Status Last Admin Acetaminophen/ Hydrocodone Bitart (Bozrah 5/325MG Tab) 1 tab ONCE ONCE PO 01/19/25 17:15 01/19/25 17:16 DC 01/19/25 18:52 X-Ray, Labs, Meds, VS Comment This patient is going to acquire a multiple discipline involvement to manage the horrific nature of his current condition. Patient is a Choice insurance patient therefore, I spoke with Dr. Fitzgerald, he confirmed and approved of higher level of care transfer. We will contact facilities that is have the facility to manage this patient properly and patient will be transferred today. Discussed the case with [facility] ER provider Dr. Jiang. Advised him of history of the patient as well as today's findings. He requested a consult with ENT for confirmation of their involvement. I discussed the patient presentation with Dr. Wells. Advised him of patient findings. He agreed to follow up with the patient in a consultation basis. Dr. Jiang and [facility] agreed to accept the patient is a transfer. We thank them for their assistance. Time of 1ST Reevaluation: 18:32 Reevaluation 1ST: Unchanged Consultation: PCP, ENT, Surgery, Other (Oncology) Patient Education/Counseling: Diagnosis, Treatment Family Education/Counseling: Diagnosis, Treatment SEPSIS Sepsis Screen Date sepsis recognized/suspect: Jan 19, 2025 Time Sepsis recognized/suspect: 4 Recent Procedure: No On Antibiotic Therapy: Yes Respiratory Rate >20: No Heart Rate >90: Yes Temp<36 C (96.8 F) or >38.3 C: No SBP <90 or MAP <65 mmHG: No New Acute Mental Status Change: No Is the patient on CPAP, BIPAP,: No Vital Signs Date Time Temp Pulse Resp B/P (MAP) Pulse Ox O2 Delivery O2 Flow Rate FiO2 01/19/25 15:39 97.6 114 18 157/104 96 97.6 Medications Medications Dose Ordered Sig/Royce Route Start Time Stop Time Status Last Admin Dose Admin Acetaminophen/ Hydrocodone Bitart 1 tab ONCE ONCE PO 01/19/25 17:15 01/19/25 17:16 DC 01/19/25 18:52 Departure 1 Departure Time of Disposition: 18:32 Impression: Primary Impression: Cellulitis Additional Impressions: Basal cell carcinoma of face Necrosis Disposition: 02 SHORT TERM HOSPITAL Condition: Stable Discharged With: Self, Spouse Critical Care Note Critical Care Time?: No Stability Stability form required: No Heart Score Heart Score: Heart Score Response (Comments) Value History N/A 0 EKG N/A 0 Age N/A 0 Risk Factors N/A 0 Troponin N/A 0 Total 0 NESHA RAVI PAC Jan 19, 2025 18:25
[2025-01-19] MEDS: HYDROcodone-ACET 5/325MG TAB PO ONE (18:52)
[2025-01-19 20:44] VITALS: BP 154/87; PULSE 62; RESP 18; TEMP 97.6; O2SAT 96
--- NOTE | 2025-01-20 14:52 | DVHINCON2 ---
Date Seen: Jan 19, 2025 Referring Physician ER nurse practitioner/physician Reason for Consultation Right facial wound necrosis with a known history of basal cell carcinoma of right face. History of Present Illness 84-year-old male with a known history of skin cancer of the right face likely basal cell cancer. status post radiation treatment in June 2024. Patient was seen by me in the past and was recommended to higher level of care in the past as well. Patient's right facial wound has necrosis as well as burn. As we do not have any maxillofacial surgeon here for plastic surgeon patient needs to be transferred to higher level of care for surgical and Plastic surgery intervention. As we do not have any oral maxillofacial surgeon availability here patient will be transferred to higher level of care for oral maxillofacial surgeon to do the wound debridement and IV antibiotics. This was explained to the patient and patient's in detail they understand verbalized understanding and agreeable to charlie Past Medical History Basal cell cancer of the right face status post radiation in the past Hypertension History of DVT BPH Past Surgical History Basal cell cancer of the right face status post surgery in the past. Family History: Alzheimer's disease G8 MOTHER Diabetes mellitus G8 MOTHER FH: COPD (chronic obstructive pulmonary disease) G8 SISTER FH: cancer G8 MOTHER G8 SISTER Allergies: Coded Allergies: NO KNOWN ALLERGIES (Unverified , 10/24/22) Home Meds Active Scripts Cephalexin Monohydrate (Cephalexin) 500 Mg Cap, 500 MG PO Q6HR for 5 Days, #20 MG Prov:ERIKA BOURGEOIS MD 11/27/24 Sulfamethoxazole W/Trimethopri (Bactrim Ds Tablet) 1 Tab Tb, 1 TAB PO BID for 5 Days, #10 TAB Prov:ERIKA BOURGEOIS MD 11/27/24 Carvedilol (COREG) 12.5 Mg Tab, 12.5 MG OR Q12HR, #60 TAB Prov:AMBAR FITZGERALD MD 10/29/22 Apixaban Base (ELIQUIS) 5 Mg Tab, 5 MG PO BIDPC, #60 TAB Prov:AMBAR FITZGERALD MD 10/29/22 Amiodarone Hcl (Amiodarone Hcl) 200 Mg Tab, 1 TAB PO DAILY, #30 TAB 5 Refills Prov:AMBAR FITZGERALD MD 10/29/22 Cephalexin (KEFLEX CAPSULE) 250 Mg Cp, 2 CAP PO TID for 3 Days, #18 CAP Prov:AMBAR FITZGERALD MD 10/29/22 Reported Medications Gemfibrozil (Gemfibrozil) 600 Mg Tab, 600 MG PO BID for 30 Days 10/23/22 Vital Signs Vital Signs Date Time Temp Pulse Resp B/P (MAP) Pulse Ox O2 Delivery O2 Flow Rate FiO2 01/19/25 20:50 Room Air* 0 21 01/19/25 20:44 97.6 62 18 154/87 (109) 96 97.6 Assessment 84-year-old male with a known history of skin cancer of the right face likely basal cell cancer who presented to the hospital with a worsening right facial face wound with a necrosis found to have 1. Right facial cell basal cell cancer with a worsening wound with a necrosis with a big hole 2. Basal cell cancer of the right face status post skin surgery as well as radiation in the past June of 2024 3. Hypertension 4. BPH 5. History of DVT -as we do not have any maxillofacial surgeon/plastic surgery available a here, patient can be transferred to higher level of care. -choice case liner has been notified. Plan discussed with: Other (ER nurse practitioner.) Date of Service: Jan 19, 2025 Billing Provider: AMBAR FITZGERALD MD Common Visit Codes: NOT BILLABLE AMBAR FITZGERALD MD Jan 20, 2025 14:52
== END 2025-01-19 21:03 | disposition short-term general hospital (02) ==
LOC: ER 15:36
DX: L03.90 Cellulitis, unspecified (principal); C44.310 Basal cell carcinoma of skin of unspecified parts of face; I96 Gangrene, not elsewhere classified; I10 Essential (primary) hypertension; Z79.899 Other long term (current) drug therapy; Z92.3 Personal history of irradiation; Z86.718 Personal history of other venous thrombosis and embolism; Z85.828 Personal history of other malignant neoplasm of skin

== ENCOUNTER 2025-03-29 12:14 | Emergency (ER) | payer OTHER ==
[~2025-03-29] VITALS: Ht 190.5 cm; Wt 69.9 kg
--- NOTE | 2025-03-29 13:28 | ED.PDOC ---
History of Present Illness(SKN HPI Comments 84 y/o M, with PMHx of basal cell carcinoma and HTN presents to the ED for CC of wound check. Patient reports, to have worsening right-sided facial basal cell carcinoma that is now causing him to be unable to eat. Per patient's , patient was Dx with basal cell carcinoma [id number] ago and has underwent x3 rounds of radiation and x1 round of chemotherapy; endorses following up regularly with his oncologist. Patient further comments on, new onset symptoms of bilateral leg swelling in relation. Patient denies nausea, vomiting, fever, or chills. No other symptoms or modifying factors are present at this time. Chief Complaint: Wound Check Time Seen by MD: 13:00 History of Present Illness: Nurses Notes, Medications, Allergies Allergies: Coded Allergies: NO KNOWN ALLERGIES (Unverified , 10/24/22) Home Meds Active Scripts Cephalexin Monohydrate (Cephalexin) 500 Mg Cap, 500 MG PO Q6HR for 5 Days, #20 MG Prov:ERIKA BOURGEOIS MD 11/27/24 Sulfamethoxazole W/Trimethopri (Bactrim Ds Tablet) 1 Tab Tb, 1 TAB PO BID for 5 Days, #10 TAB Prov:ERIKA BOURGEOIS MD 11/27/24 Carvedilol (COREG) 12.5 Mg Tab, 12.5 MG OR Q12HR, #60 TAB Prov:AMBAR FITZGERALD MD 10/29/22 Apixaban Base (ELIQUIS) 5 Mg Tab, 5 MG PO BIDPC, #60 TAB Prov:AMBAR FITZGERALD MD 10/29/22 Amiodarone Hcl (Amiodarone Hcl) 200 Mg Tab, 1 TAB PO DAILY, #30 TAB 5 Refills Prov:AMBAR FITZGERALD MD 10/29/22 Cephalexin (KEFLEX CAPSULE) 250 Mg Cp, 2 CAP PO TID for 3 Days, #18 CAP Prov:AMBAR FITZGERALD MD 10/29/22 Reported Medications Gemfibrozil (Gemfibrozil) 600 Mg Tab, 600 MG PO BID for 30 Days 10/23/22 Information Source: Patient Mode of Arrival: Ambulatory Severity: Moderate Timing: Months Duration: Since onset Prehospital treatment: None Location: Face (right sided) Associated Signs and Symptoms: None Past Medical History PAST MEDICAL HISTORY: Cancer, HTN Surgical History: Denies all surgeries Family History Family History: Reviewed,noncontributory to illness, No family hx of Cancer, No family hx of DM, No family hx of Heart wilber, No family hx of HTN, No family hx ofKidney wilber, No family hx of Liver wilber, No family hx of Lung wilber, No family hx of Stroke Social History Smoker: Non-Smoker Alcohol: Denies ETOH Use Drugs: Denies Drug Use Lives In: Home Constitutional: denies: chills, diaphoresis, fatigue, fever, malaise, sweats, weakness, others EENTM: denies: blurred vision, double vision, ear bleeding, ear discharge, ear drainage, ear pain, ear ringing, eye pain, eye redness, hearing loss, mouth pain, mouth swelling, nasal discharge, nose bleeding, nose congestion, nose pain, photophobia, tearing, throat pain, throat swelling, voice changes, others Respiratory: denies: cough, hemoptysis, orthopnea, SOB at rest, shortness of breath, SOB with excertion, stridor, wheezing, others Cardiovascular: denies: chest pain, dizzy spells, diaphoresis, Dyspnea on exertion, edema, irregular heart beat, left arm pain, lightheadedness, palpitations, PND, syncope, others Gastrointestinal: reports: poor appetite; denies: abdomen distended, abdominal pain, blood streaked bowels, constipated, diarrhea, dysphagia, difficulty swallowing, hematemesis, melena, nausea, poor fluid intake, rectal bleeding, rectal pain, vomiting, others Genitourinary: denies: burning, dysuria, flank pain, frequency, hematuria, incontinence, penile discharge, penile sore, pain, testicle pain, testicle swelling, urgency, others Neurological: denies: dizziness, fainting, headache, left sided numbness, left sided weakness, numbness, paresthesia, pre-existing deficit, right sided numbness, right sided weakness, seizure, speech problems, tingling, tremors, weakness, others Musculoskeletal: reports: others (bilateral leg swelling); denies: back pain, gout, joint pain, joint swelling, muscle pain, muscle stiffness, neck pain Integumetry: denies: bruises, change in color, change in hair/nails, dryness, laceration, lesions, lumps, rash, wounds, others Allergic/Immunocompromised: denies: Difficulty Healing, Frequent Infections, Hives, Itching, others Hematologic/Lymphatic: denies: anemia, blood clots, easy bleeding, easy bruising, swollen glands, others Endocrine: denies: excessive hunger, excessive sweating, excessive thirst, excessive urination, flushing, intolerance to cold, intolerance to heat, unexplained weight gain, unexplained weight loss, others Psychiatric: denies: anxiety, bipolar disorder, depression, hopeless, panic disorder, schizophrenia, sleepless, suicidal, others All Other Systems: Reviewed and Negative Physical Exam General Appearance: Severe Distress HEENT: Pharynx Normal, TMs Normal, Other (Significant deformity of the right side of the face with a erosive areas around the maxillary as well as zygoma and orbital region with some drainage) Neck: Full Range of Motion, Non-Tender, Normal, Normal Inspection Respiratory: Chest Non-Tender, Lungs Clear, No Accessory Muscle Use, No Respiratory Distress, Normal Breath Sounds Cardiovascular: No Edema, No JVD, No Murmur, No Gallop, Normal Peripheral Pulses, Regular Rate/Rhythm Breast Exam: Deferred Gastrointestinal: No Organomegaly, Non Tender, No Pulsatile Mass, Normal Bowel Sounds, Soft Genitalia: Deferred Pelvic: Deferred Rectal: Deferred Extremities: No calf tenderness, Normal capillary refill, Normal inspection, Normal range of motion, Non-tender, No pedal edema Musculoskeletal : Apperance: Normal Neurologic: Alert, moving consultant II-XII nml as Tested, No Motor Deficits, Normal Affect, Normal Mood, No Sensory Deficits Cerebellar Function: Normal Reflexes: Normal Skin: Dry, Normal Color, Warm Lymphatic: No Adenopathy Was a procedure done? Was a procedure done?: No Differential Diagnosis (INTG) Differential Diagnosis: Other (basal cell carcinoma) X-Ray, Labs, Meds, VS Vital Signs Date Time Temp Pulse Resp B/P (MAP) Pulse Ox O2 Delivery O2 Flow Rate FiO2 03/29/25 20:55 60 13 155/71 03/29/25 20:25 64 15 155/71 03/29/25 19:30 97.8 77 17 139/68 (91) 98 97.8 03/29/25 19:30 Room Air* 0 21 03/29/25 18:00 54 18 163/77 (105) 99 12/18/25 17:00 64 03/29/25 16:58 71 16 99 Room Air* 0 21 03/29/25 16:45 97.4 71 16 162/85 (110) 99 97.4 03/29/25 13:59 98.4 85 17 145/92 (109) 96 98.4 03/29/25 12:15 98.3 110 18 150/96 97 98.3 Lab Test 03/29/25 15:10 03/29/25 13:26 Range/Units Urine Color Yellow Yellow Urine Clarity Clear Clear Urine pH 5.5 5.0-9.0 Urine Specific Chauvin 1.021 1.001-1.035 Urine Protein Negative Negative Urine Ketones Negative Negative Urine Blood Negative Negative /uL Urine Nitrite Negative Negative Urine Bilirubin Negative Negative Urine Urobilinogen Normal Negative mg/dL Urine Leukocyte Esterase Negative Negative /uL Urine RBC 1 0 - 3 /hpf Urine Microscopic WBC 2 0-3 /HPF Urine Squamous Epithelial Cells Few <5 /hpf Urine Bacteria None seen None Seen /hpf Urine Hyaline Casts Few 0 - 2 /lpf Urine Mucus Few None Seen Urine Glucose Normal Normal mg/dL White Blood Count 10.7 4.4-10.8 10^3/uL Red Blood Count 4.54 4.5-5.90 10^6/uL Hemoglobin 12.5 L 13.5-17.5 g/dL Hematocrit 38.2 L 41.0-53.0 % Mean Corpuscular Volume 84.0 80.0-100.0 fL Mean Corpuscular Hemoglobin 27.4 L 28.0-32.0 pg Mean Corpuscular Hemoglobin Concent 32.7 32.0-36.0 g/dL Red Cell Distribution Width 14.6 H 11.8-14.3 % Platelet Count 315 140-450 10^3/uL Mean Platelet Volume 7.8 6.9-10.8 fL Neutrophils (%) (Auto) 87.7 H 37.0-80.0 % Lymphocytes (%) (Auto) 6.4 L 10.0-50.0 % Monocytes (%) (Auto) 5.3 0.0-12.0 % Eosinophils (%) (Auto) 0.4 0.0-7.0 % Basophils (%) (Auto) 0.2 0.0-2.0 % Neutrophils # (Auto) 9.4 H 1.6-8.6 10 ^3/uL Lymphocytes # (Auto) 0.7 0.4-5.4 10 ^3/uL Monocytes # (Auto) 0.6 0-1.3 10 ^3/uL Eosinophils # (Auto) 0 0-0.8 10 ^3/uL Basophils # (Auto) 0 0-0.2 10 ^3/uL Nucleated Red Blood Cells 0.1 % Sodium Level 143 136-145 mmol/L Potassium Level 4.2 3.5-5.1 mmol/L Chloride Level 105 98-107 mmol/L Carbon Dioxide Level 28 20-31 mmol/L Anion Gap 10 5-15 Blood Urea Nitrogen 20 9-23 mg/dL Creatinine 1.29 0.700-1.30 mg/dL Glomerular Filtration Rate Calc 55 >90 mL/min BUN/Creatinine Ratio 15.5 10.0-20.0 Serum Glucose 95 74-106 mg/dL Lactic Acid Level 1.1 0.4-2.0 mmol/L Calcium Level 10.3 8.7-10.4 mg/dL Current Medications Medications (Trade) Dose Ordered Sig/Royce Route Start Time Stop Time Status Last Admin Morphine Sulfate 4 mg ONCE ONCE IV 03/29/25 20:15 03/29/25 20:16 DC 03/29/25 20:25 Ondansetron HCl (Zofran) 4 mg ONCE ONCE IV 03/29/25 20:15 03/29/25 20:16 DC 03/29/25 20:26 IMPRESSION: 1. Large exophytic erosive soft tissue lesion along the right anterolateral face measuring up to 11.4 cm that demonstrates right orbital, right maxillofacial, right anterior ethmoid/frontoethmoidal invasion as described in the findings. This is highly concerning for a malignant tumor such as squamous cell cell carcinoma; however, other malignancies can be considered in the appropriate clinical setting. 2. Multiple pathologically enlarged right cervical neck lymph nodes, including an index right level level IIa/b station lymph node measuring up to 1.8 cm in short-axis at the level IIa/b station. 3. No clearly conspicuous liquid collection/abscess. IV Hep-Lock was established The patient was given morphine 4 mg IV push for the pain The patient was given Zofran 4 mg IV push for the nausea At this time, the patient is being transferred to [facility] in [place]. We did discuss the findings with the patient and they are in agreement with the management. We initially contacted several facilities in the local area as far as [facility] and [facility] but did get any receiving facilities The patient is being transferred Images Reviewed?: Images reviewed and evaluated by me Time of 1ST Reevaluation: 13:30 Reevaluation 1ST: Unchanged Patient Education/Counseling: Diagnosis, Treatment, Prognosis Family Education/Counseling: Diagnosis, Treatment, Prognosis SEPSIS Sepsis Screen Date sepsis recognized/suspect: Mar 29, 2025 Time Sepsis recognized/suspect: 1216 Recent Procedure: No On Antibiotic Therapy: No Respiratory Rate >20: No Heart Rate >90: Yes Temp<36 C (96.8 F) or >38.3 C: No SBP <90 or MAP <65 mmHG: No New Acute Mental Status Change: No Is the patient on CPAP, BIPAP,: No Physician Orders Heplock Iv (03/29/25 13:16) Maxillofacial Without (03/29/25 13:16) Blood Culture (03/29/25 13:16) Imaging Transfer Request (03/29/25 15:55) Imaging Transfer Request (03/29/25 21:18) Vital Signs Date Time Temp Pulse Resp B/P (MAP) Pulse Ox O2 Delivery O2 Flow Rate FiO2 03/29/25 20:55 60 13 155/71 03/29/25 20:25 64 15 155/71 03/29/25 19:30 97.8 77 17 139/68 (91) 98 97.8 03/29/25 19:30 Room Air* 0 21 03/29/25 18:00 54 18 163/77 (105) 99 03/29/25 17:00 64 03/29/25 16:58 71 16 99 Room Air* 0 21 03/29/25 16:45 97.4 71 16 162/85 (110) 99 97.4 03/29/25 13:59 98.4 85 17 145/92 (109) 96 98.4 03/29/25 12:15 98.3 110 18 150/96 97 98.3 Laboratory Tests Test 03/29/25 13:26 Lactic Acid Level 1.1 mmol/L (0.4-2.0) White Blood Count 10.7 10^3/uL (4.4-10.8) Medications Medications Dose Ordered Sig/Royce Route Start Time Stop Time Status Last Admin Dose Admin Morphine Sulfate 4 mg ONCE ONCE IV 03/29/25 20:15 03/29/25 20:16 DC 03/29/25 20:25 Ondansetron HCl 4 mg ONCE ONCE IV 03/29/25 20:15 03/29/25 20:16 DC 03/29/25 20:26 Departure 1 Departure Time of Disposition: 21:29 Impression: Primary Impression: Carcinoma of face Disposition: 51 HOSPICE[facility]MEDICAL FACILITY Condition: Guarded Critical Care Note Critical Care Time?: No Stability Stability form required: Yes Stable for transfer: Intended for transfer, To designated facility Heart Score Heart Score: Heart Score Response (Comments) Value History N/A 0 EKG N/A 0 Age N/A 0 Risk Factors N/A 0 Troponin N/A 0 Total 0 I personally scribed for CHRISTEN GRULLON MD ([email or web address]) on 03/29/25 at 13:28. Electronically submitted by Maíra Brooks ([employer] I personally scribed for CHRISTEN GRULLON MD ([email or web address]) on 03/29/25 at 13:52. Electronically submitted by María Brooks ([employer] I personally scribed for CHRISTEN GRULLON MD ([email or web address]) on 03/29/25 at 15:17. Electronically submitted by María Brooks ([employer] CHRISTEN GRULLON MD Mar 29, 2025 13:28
[2025-03-29 13:59] LABS: Hematocrit 38.2 % (41.0-53.0); Hemoglobin 12.5 g/dL (13.5-17.5); Mean Corpuscular Hemoglobin 27.4 pg (28.0-32.0); Mean Corpuscular Volume 84.0 fL (80.0-100.0); Nucleated Red Blood Cells % 0.1 %
[2025-03-29 14:04] LABS: Anion Gap 10 (5-15); Carbon Dioxide 28 mmol/L (20-31); Chloride 105 mmol/L (98-107); Potassium 4.2 mmol/L (3.5-5.1); Sodium 143 mmol/L (136-145)
[2025-03-29 14:05] LABS: Calcium 10.3 mg/dL (8.7-10.4)
[2025-03-29 14:10] LABS: BUN/Creatinine Ratio 15.5 (10.0-20.0); Blood Urea Nitrogen 20 mg/dL (9-23); Glucose 95 mg/dL (74-106)
--- NOTE | 2025-03-29 14:42 | DVH ---
CT FACE WITHOUT CONTRAST HISTORY: Infection. COMPARISON: Neck CT 03/20/2025. CONTRAST: Study was performed without contrast. TECHNIQUE: CT exam of the facial bones was performed without intravenous contrast. This exam was performed according to our departmental dose optimization program. Up-to-date CT equipment and radiation dose reduction techniques are utilized as appropriate. DOSE: CTDIvol: 56.3 mGy; DLP: 1092.4 mGy-cm. FINDINGS: BONES/SOFT TISSUES/PARANASAL SINUSES/ ORBITS: Large exophytic erosive soft tissue lesion along the right anterolateral face that is difficult to measure on this exam but measuring approximately 11.4 x 7.8 x 3.4 cm (CC x AP x TV; 602/16, 604/34, 4/96), which extends to the right lateral periorbital region, right infraorbital region, and right medial orbital wall at its superior aspect, along the right anterior chin at its inferior aspect, and is associated with extensive osseous erosion along the anterolateral aspect of the maxillary sinus diaz, zygomatic arch, and inferior orbital rim. [id number] circumferential soft tissue opacification along the right maxillary sinus, which is suspected to represent tumoral involvement. Soft tissue opacification of the right medial orbital wall with opacification of the right anterior ethmoid air cells/frontoethmoidal recess, which is also suspected to represent tumoral involvement. Globes, extra-ocular muscles, optic nerves appear intact. No gas-liquid levels within the paranasal sinuses. No clearly conspicuous liquid collection/abscess. NASAL CAVITY: Clear. Mild rightward deviated nasal septum with a moderate size right-sided spur. MASTOID AIR CELLS/MIDDLE EAR CAVITIES: Clear. OTHER: Multiple pathologically enlarged right cervical neck lymph nodes, including an index right level level IIa/b station lymph node measuring up to 1.8 cm in short-axis at the level IIa/b station. Moderate calcific atherosclerosis of the carotid siphons. IMPRESSION: 1. Large exophytic erosive soft tissue lesion along the right anterolateral face measuring up to 11.4 cm that demonstrates right orbital, right maxillofacial, right anterior ethmoid/frontoethmoidal invasion as described in the findings. This is highly concerning for a malignant tumor such as squamous cell cell carcinoma; however, other malignancies can be considered in the appropriate clinical setting. 2. Multiple pathologically enlarged right cervical neck lymph nodes, including an index right level level IIa/b station lymph node measuring up to 1.8 cm in short-axis at the level IIa/b station. 3. No clearly conspicuous liquid collection/abscess.
[2025-03-29 15:48] LABS: Urine Protein, UAD Negative (Negative)
[2025-03-29 16:58] VITALS: PULSE 71; RESP 16; O2SAT 99
[2025-03-29] MEDS: MORPHINE SULFATE 4 MG/ML SYR/VIAL IV ONE (20:25)
[2025-03-29] MEDS: ONDANSETRON HCL 4 MG/2 ML VIAL IV ONE (20:26)
[2025-03-29 22:41] VITALS: BP 150/66; PULSE 61; RESP 14; TEMP 97.5; O2SAT 96
== END 2025-03-29 23:17 | disposition home or self-care (01) ==
LOC: ER 12:14
DX: C44.91 Basal cell carcinoma of skin, unspecified (principal); I10 Essential (primary) hypertension; Z79.899 Other long term (current) drug therapy
CPT/HCPCS: 36415; 70486; 80048; 81001; 83605; 85025; 87040; 96374; 96375; 99285; J2270; J2405